=== PATIENT | female | born 1995 | race African-American/Black ===

== ENCOUNTER 2018-09-15 12:17 | Observation (INO) ==
[2018-09-15] MEDS ORDERED: NS 1,000 ML IV ONE ×4 (12:34→17:47)
[2018-09-15] MEDS ORDERED: BENTYL IM ONE (12:34)
[2018-09-15] MEDS ORDERED: REGLAN IV ONE (12:34)
--- NOTE | 2018-09-15 12:49 | PROVIDER DOCUMENTATION ---
This chart was entered by Kianna Contreras Scribe, acting as scribe for Dina Montano CRNP. HPI-Abdominal Pain/GI Problem <AdrianMarcellus Cassidy. - Last Filed: 09/15/18 15:43> - General Source: patient - History of Present Illness-ABD Nature of Presenting Problems: 23yof presents to ED cc vomiting since 8am and severe abdominal pain. Unsure of how many vomiting episodes she has had. Pt reports she has hx of gastroparesis and she has these symptoms every time she is on her menstrual cycle, which she reports she is currently on. Pt has hx of DM. Pt is very anxious upon examination. Denies fever/chills, diarrhea, CP, SOB, or symptoms. Pt reports hx of HTN for which she is prescribed medication (unsure of name), but reports she does not take the medication. Abdominal Pain Onset Location: reports: suprapubic Pain Radiation: reports: no radiation Quality of Pain: reports: tightness Severity in ED: reports: moderate Onset/Duration: reports: this morning Timing: reports: still present, intermittent Activities at Onset: reports: none Exposure to sick contacts?: No Modifying Factors: worse with: palpation Associated Symptoms: reports: nausea, vomiting. denies: diarrhea, dizziness, fatigue, fever/chills, genitourinary problems, sinus congestion/drainage, shortness of breath, weakness, trouble walking Last BM: unsure Dark Stools Present?: reports: none noticed Rectal Bleeding: reports: none Rectal Pain: reports: none Emesis Description: reports: clear Bruising or Bleeding Gums?: No Similar Symptoms Previously?: Yes Recently seen or treated by another doctor?: No <Dina Montano - Last Filed: 09/15/18 15:51> - General Chief Complaint: Nausea/Vomiting Stated Complaint: ABD PAIN, VOMITTING Time Seen by Provider: 09/15/18 12:29 Allergies/Adverse Reactions: Patient Allergies Allergy/AdvReac Type Severity Reaction Status Date / Time No Known Allergies Allergy Verified 06/16/18 17:15 Home Medications: Home Medication List Medication Instructions Recorded Confirmed Last Taken Type Insulin Glargine,Hum.rec.anlog 20 units SQ QHS 06/16/18 08/22/18 Unknown History [Lantus Solostar] Promethazine [Phenergan] 25 mg [place] Q6H PRN PRN #12 supp 08/22/18 Unknown Rx Review of Systems - Adult - REVIEW OF SYSTEMS - ADULT Constitutional: reports: see HPI. denies: chills, fever, fatique Eyes: reports: no symptoms reported Ears, Nose, Mouth & Throat: reports: no symptoms reported Cardiovascular: denies: chest pain, palpitations Respiratory: denies: cough, shortness of breath Gastrointestinal: reports: see HPI, abdominal pain (lower), nausea, vomiting. denies: diarrhea Genitourinary: denies: dysuria, urgency Musculoskeletal: reports: no symptoms reported Integumentary: reports: no symptoms reported Neurological: denies: dizziness/vertigo, headache/migraines Psychiatric: reports: no symptoms reported Endocrine: reports: no symptoms reported All Other Systems: Reviewed and Negative <Dina Montano - Last Filed: 09/15/18 15:51> Past History - Adult - PAST MEDICAL HISTORY-ADULT Review of Records: reports: Old Records Reviewed, Nursing Assessment Review, Medications Reviewed, Social history reviewed & non-contributory. Major Childhood Illnesses: reports: denies history Cardiovascular: reports: HTN Respiratory: reports: denies history Gastrointestinal: reports: GERD, other (gastric issues, gastroparesis, lactose and tolerant) Obstetrical/Gynecological: reports: denies history Genitourinary: reports: denies history Musculoskeletal: reports: denies history Neurological: reports: denies history Psychiatric: reports: depression Endocrine/Immune: reports: Diabetes Other Conditions: reports: denies history - PRIOR SURGERIES/PROCEDURES Surgical/Procedure History: reports: reviewed, not pertinent, other ([place] teeth) - PRIOR HOSPITALIZATIONS Prior Hospitalizations: reports: none - IMMUNIZATION STATUS Childhood Immunizations: See Nurse Assessment Flu Vaccine: See Nurse Assessment - FAMILY HISTORY Family History: reviewed, not pertinent - SOCIAL HISTORY Smoking: denies <Dina Montano - Last Filed: 09/15/18 15:51> Physical Exam-General - PHYSICAL EXAM-ADULT Initial Vital Signs Reviewed: Yes - CONSTITUTIONAL General Appearance: alert, mild distress, anxious. negative: combative - EYES Eyes: PERRL/EOMI, pink conjunctivae. negative: photophobia - HEAD, EARS, NOSE, MOUTH & THROAT HENMT: normocephalic/atraumatic, moist mucous membranes. negative: angioedema - NECK Neck: non-tender, full range of motion, supple, normal inspection. negative: B rudzinski's sign, carotid bruit, C-spine tenderness - RESPIRATORY Respiratory: chest non-tender, lungs clear, normal breath sounds, no pleuratic chest pain, no respiratory distress, no accessory muscle use. negative: crackles, rales, rhonchi - CARDIOVASCULAR Cardiovascular: normal peripheral pulses, regular rate, rhythm. negative: bradycardia, tachycardia - GASTROINTESTINAL (ABDOMEN) Abdominal Exam: normal bowel sounds, soft, no organomegaly, no pulsatile mass, tenderness (TTP mild lower abdomen). negative: non tender, rigid, rebound, McBurney's point tenderness, Wakefield's sign - LYMPHATIC Lymphatic: no adenopathy. negative: striations - MUSCULOSKELETAL Back Exam: normal inspection, no CVA tenderness, no vertebral tenderness. negative: swelling Extremity: normal range of motion, non-tender, normal gait, normal inspection. negative: deformity - SKIN Integumentary: normal color, normal turgor, warm/dry. negative: diaphoresis, signs of IVDA, jaundice - NEUROLOGIC Neurologic: grossly normal, no motor/sensory deficits. negative: facial droop, focal weakness - PSYCHIATRIC Psych/Mental Status: oriented x 3, anxious, tearful. negative: paranoid <Dina Montano - Last Filed: 09/15/18 15:51> Progress - PLAN OF CARE/RESULTS Progress/Plan/Lab Results: Vital Signs - 8 hr 09/15/18 12:20 09/15/18 13:02 09/15/18 13:18 Temperature 98.4 F Pulse Rate 69 51 L Pulse Rate [Sitting] 50 L Pulse Rate [Standing] 56 L Pulse Rate [Supine] 51 L Respiratory Rate 28 H 16 Blood Pressure 188/103 180/97 Blood Pressure [Sitting] 164/91 Blood Pressure [Standing] 174/100 Blood Pressure [Supine] 167/91 O2 Sat by Pulse Oximetry 100 100 09/15/18 13:51 Temperature Pulse Rate 45 L Pulse Rate [Sitting] Pulse Rate [Standing] Pulse Rate [Supine] Respiratory Rate 16 Blood Pressure 160/90 Blood Pressure [Sitting] Blood Pressure [Standing] Blood Pressure [Supine] O2 Sat by Pulse Oximetry 100 Bedside Urine ED: Urine Bedside Start: 09/15/18 12:29 Freq: ORDERED Status: Active Protocol: Activity Type Activity Date Activity User E-Sign Co-Sign Detail Recorded Client Recorded Date Recorded By Document 09/15/18 13:02 [id number] 09/15/18 13:02 [id number] 09/15/18 13:02 Point of Care [Bedside Point of Care] -Lot # [id number] - Results Negative -Control Line Visible? Yes Laboratory Results - last 24 hr 09/15/18 09/15/18 09/15/18 12:40 12:40 12:46 WBC 8.66 RBC 4.44 Hgb 12.3 Hct 35.6 L MCV 80.2 L MCH 27.7 MCHC 34.6 RDW Std Deviation 15.1 H Plt Count 381 MPV 10.3 Immature Gran % (Auto) 0.3 Neut % (Auto) 67.1 Lymph % (Auto) 28.4 [place] % (Auto) 3.7 Eos % (Auto) 0.3 Baso % (Auto) 0.2 Immature Gran # (Auto) 0.03 Neut # (Auto) 5.80 Lymph # (Auto) 2.46 Ramsey # (Auto) 0.32 Eos # (Auto) 0.03 Baso # (Auto) 0.02 Specimen Type VBG pH VBG pCO2 VBG pO2 VBG HCO3 VBG O2 Saturation VBG Base Excess Sodium 135 L Potassium 3.6 Chloride 96 L Carbon Dioxide 20 L Anion Gap 19 BUN 8 Creatinine 0.6 Estimated GFR/1.73 m2 > 60 BUN/Creatinine Ratio 13 Glucose 273 H POC Glucose Calculated Osmolality 278 Calcium 9.6 Total Bilirubin 0.40 AST 23 ALT 24 Alkaline Phosphatase 130 H Total Protein 8.6 H Albumin 4.4 Globulin 4.0 Albumin/Globulin Ratio 1.0 Lipase 27 Urine Source CLEAN CATCH Urine Color YELLOW Urine Clarity CLEAR Urine pH 8.0 Ur Specific [place] 1.010 Urine Protein TRACE A Urine Ketones 3+(Large) A Urine Blood 3+ A Urine Nitrite NEGATIVE Urine Bilirubin NEGATIVE Urine Urobilinogen NORMAL Urine Microscopic RBC <10 Urine WBC NEGATIVE Urine Microscopic WBC <10 Ur Epithelial Cells >10 A Urine Crystals CA OXALATE PRESENT Urine Bacteria 1+ Urine Casts NONE SEEN Urine Yeast PRESENT Urine Glucose 2+(250 mg/dL) A Urine Opiates Screen Ur Oxycodone Screen Urine Methadone Screen U Propoxyphene Qual Ur Barbituates Screen Ur Tricyclics Screen Ur Phencyclidine Scrn Ur Amphetamines Screen U Methamphetamines Scrn U Benzodiazepines Scrn Urine Cocaine Screen U Cannabinoids Screen Acetone Level 09/15/18 09/15/18 09/15/18 12:59 13:07 13:40 WBC RBC Hgb Hct MCV MCH MCHC RDW Std Deviation Plt Count MPV Immature Gran % (Auto) Neut % (Auto) Lymph % (Auto) [place] % (Auto) Eos % (Auto) Baso % (Auto) Immature Gran # (Auto) Neut # (Auto) Lymph # (Auto) Ramsey # (Auto) Eos # (Auto) Baso # (Auto) Specimen Type VENOUS VBG pH 7.22 L VBG pCO2 47 VBG pO2 48 VBG HCO3 17.9 L VBG O2 Saturation 80.9 VBG Base Excess -8.4 L Sodium Potassium Chloride Carbon Dioxide Anion Gap BUN Creatinine Estimated GFR/1.73 m2 BUN/Creatinine Ratio Glucose POC Glucose 288 H Calculated Osmolality Calcium Total Bilirubin AST ALT Alkaline Phosphatase Total Protein Albumin Globulin Albumin/Globulin Ratio Lipase Urine Source Urine Color Urine Clarity Urine pH Ur Specific [place] Urine Protein Urine Ketones Urine Blood Urine Nitrite Urine Bilirubin Urine Urobilinogen Urine Microscopic RBC Urine WBC Urine Microscopic WBC Ur Epithelial Cells Urine Crystals Urine Bacteria Urine Casts Urine Yeast Urine Glucose Urine Opiates Screen NONE DETECTED Ur Oxycodone Screen NONE DETECTED Urine Methadone Screen NONE DETECTED U Propoxyphene Qual NONE DETECTED Ur Barbituates Screen NONE DETECTED Ur Tricyclics Screen NONE DETECTED Ur Phencyclidine Scrn NONE DETECTED Ur Amphetamines Screen NONE DETECTED U Methamphetamines Scrn NONE DETECTED U Benzodiazepines Scrn NONE DETECTED Urine Cocaine Screen NONE DETECTED U Cannabinoids Screen PRESUMPTIVE POSITIVE A Acetone Level 09/15/18 09/15/18 13:47 14:06 WBC RBC Hgb Hct MCV MCH MCHC RDW Std Deviation Plt Count MPV Immature Gran % (Auto) Neut % (Auto) Lymph % (Auto) [place] % (Auto) Eos % (Auto) Baso % (Auto) Immature Gran # (Auto) Neut # (Auto) Lymph # (Auto) [place] # (Auto) Eos # (Auto) Baso # (Auto) Specimen Type VBG pH VBG pCO2 VBG pO2 VBG HCO3 VBG O2 Saturation VBG Base Excess Sodium Potassium Chloride Carbon Dioxide Anion Gap BUN Creatinine Estimated GFR/1.73 m2 BUN/Creatinine Ratio Glucose POC Glucose 261 H Calculated Osmolality Calcium Total Bilirubin AST ALT Alkaline Phosphatase Total Protein Albumin Globulin Albumin/Globulin Ratio Lipase Urine Source Urine Color Urine Clarity Urine pH Ur Specific [place] Urine Protein Urine Ketones Urine Blood Urine Nitrite Urine Bilirubin Urine Urobilinogen Urine Microscopic RBC Urine WBC Urine Microscopic WBC Ur Epithelial Cells Urine Crystals Urine Bacteria Urine Casts Urine Yeast Urine Glucose Urine Opiates Screen Ur Oxycodone Screen Urine Methadone Screen U Propoxyphene Qual Ur Barbituates Screen Ur Tricyclics Screen Ur Phencyclidine Scrn Ur Amphetamines Screen U Methamphetamines Scrn U Benzodiazepines Scrn Urine Cocaine Screen U Cannabinoids Screen Acetone Level NEGATIVE Orders Category Date Time Status ED: Urine Bedside ORDERED Care 09/15/18 12:29 Active FSBS [Finger Stick Blood Sugar (ED)] DIRECTED Care 09/15/18 12:34 Active Orthostatic Vital Signs NOW Care 09/15/18 12:29 Active Saline Loc NOW Care 09/15/18 12:34 Active ACETONE SERUM [CHEM] Stat Lab 09/15/18 13:47 Completed CBC WITH ELECTRONIC DIFF [HEME] Stat Lab 09/15/18 12:40 Completed COMPREHENSIVE METABOLIC PANEL [CHEM] Stat Lab 09/15/18 12:40 Completed LIPASE [CHEM] Stat Lab 09/15/18 12:[address] W/POSS RFLX CULT [URINALYSIS] Stat Lab 09/15/18 12:46 Completed URINE DRUG SCREEN PL Stat Lab 09/15/18 13:07 Completed [address]OUS BLOOD GAS [address] [RESP] Routine Lab 09/15/18 13:40 Completed 0.9% Sodium Chloride Inj [Ns] 1,000 ml Med 09/15/18 12:34 Discontinued IV 999 mls/hr 0.9% Sodium Chloride Inj [Ns] 1,000 ml Med 09/15/18 15:12 Active IV 999 mls/hr Dicyclomine [Bentyl] Med 09/15/18 12:34 Discontinued 20 mg IM NOW ONE Famotidine [Pepcid] Med 09/15/18 13:58 Discontinued 20 mg IV NOW ONE Hydralazine [Apresoline] Med 09/15/18 15:11 Discontinued 10 mg IV NOW ONE Ketorolac [Toradol] Med 09/15/18 13:58 Discontinued 15 mg IV NOW ONE Metoclopramide [Reglan] Med 09/15/18 12:34 Discontinued 10 mg IV NOW ONE Ondansetron [Zofran] Med 09/15/18 13:58 Discontinued 4 mg IV NOW ONE Pantoprazole [Protonix] Med 09/15/18 13:58 Discontinued 40 mg IV NOW ONE Sodium Chloride 0.9% Med 09/15/18 13:58 Discontinued 10 ml INJ NOW ONE Sodium Chloride 0.9% Med 09/15/18 13:58 Discontinued 5 - 10 ml INJ NOW ONE EKG [EKG] Stat Ther 09/15/18 13:11 Draft Result Diagrams: 09/15/18 12:40 09/15/18 12:40 - REASSESSMENT Reassessment #2 Time Reassessed: 15:20 Status: worsening (ANOTHER BOUT OF BILIOUS VOMITING, BP NOW UP TO 209/176. NOT pH OF 7.22, BS JUST 273. DISCUSSED ADMISSION WITH DR FORTE) - CONSULTS/PCP/HOSPITALIST Notification #1 *Consult/PCP/Hospitalist*: Jada FORTE Consult Disposition: Admit, other (DR FORTE FAMILIAR WITH PT, ADMIT, TRIAL OF THORZINE IM) <Marcellus Campbell - Last Filed: 09/15/18 15:43> - PLAN OF CARE/RESULTS Progress/Plan/Lab Results: Vital Signs - 8 hr 09/15/18 12:20 Temperature 98.4 F Pulse Rate 69 Respiratory Rate 28 H Blood Pressure 188/103 O2 Sat by Pulse Oximetry 100 Orders Category Date Time Status ED: Urine Bedside ORDERED Care 09/15/18 12:29 Active FSBS [Finger Stick Blood Sugar (ED)] DIRECTED Care 09/15/18 12:34 Active Orthostatic Vital Signs NOW Care 09/15/18 12:29 Active Saline Loc NOW Care 09/15/18 12:34 Active CBC WITH ELECTRONIC DIFF [HEME] Stat Lab 09/15/18 12:29 Uncollected COMPREHENSIVE METABOLIC PANEL [CHEM] Stat Lab 09/15/18 12:29 Uncollected LIPASE [CHEM] Stat Lab 09/15/18 12:[address] W/POSS RFLX CULT [URINALYSIS] Stat Lab 09/15/18 12:29 Uncollected 0.9% Sodium Chloride Inj [Ns] 1,000 ml Med 09/15/18 12:34 Active IV 999 mls/hr Dicyclomine [Bentyl] Med 09/15/18 12:34 Discontinued 20 mg IM NOW ONE Metoclopramide [Reglan] Med 09/15/18 12:34 Discontinued 10 mg IV NOW ONE 1315: Patient's HR dropped down to 43bpm. EKG obtained. Patient BP elevated. Patient sleeping. Will continue to monitor. Result Diagrams: 09/15/18 12:40 09/15/18 12:40 - EKG 1 Time of EKG reading by physician:: 13:30 EKG Read and Signed by:: Marcellus Campbell EKG Interpretation (*Must complete 3 of following elements*): Abnormal Rate: 43 Rhythm: Marked sinus bradycardia [place]: normal QRS: LVH (minimal voltage criteria for LVH, may be normal variant) [place] Interval: normal ST Wave: non-specific ST changes - CONSULTS/PCP/HOSPITALIST Notification #1 *Consult/PCP/Hospitalist*: MD Sammy Time Discussed: 15:13 Reason/Comments: cyclic vomiting; DKA; abdominal pain Consult Disposition: Admit, other <Dina Montano - Last Filed: 09/15/18 15:51> Departure - Critical Care Note This patient required my direct & personal management of CC.: No <Marcellus Campbell - Last Filed: 09/15/18 15:43> - Departure Date of Disposition Decision: 09/15/18 Time of Disposition Decision: 15:15 Certified Medical Emergency: Emergent - Critical Care Note This patient required my direct & personal management of CC.: No <Dina Montano - Last Filed: 09/15/18 15:51> - Departure DIAGNOSIS: Nausea, Bradycardia Cyclic vomiting syndrome Qualifiers: Vomiting Intractability: non-intractable Nausea presence: with nausea Qualified Code(s): G43.A0 - Cyclical vomiting, not intractable Abdominal pain Qualifiers: Abdominal location: generalized Qualified Code(s): R10.84 - Generalized abdominal pain DKA, type 2 Qualifiers: Diabetes mellitus care home insulin use: unspecified care home insulin use status Diabetes mellitus complication detail: without coma Qualified Code(s): E11.10 - Type 2 diabetes mellitus with ketoacidosis without coma High blood pressure Qualifiers: Hypertension type: unspecified Qualified Code(s): I10 - Essential (primary) hypertension Disposition: ADMITTED INPATIENT 09 Condition: Stable Referrals and Follow-Ups: Derrick Forte MD [Primary Care Provider] - Attestation - Physician/ BABAK Attestation The physician spent face to face time with patient:: Yes Advanced Practice Provider documentation review:: Supervising physician onsite and consulted in the evaluation and care of this patient. The physician did have a face to face encounter with the patient. <Marcellus Campbell - Last Filed: 09/15/18 15:43> - Physician/ BABAK Attestation Patient care was provided by Advanced Practice Provider:: Yes Advanced Practice Provider:: Dina Montano Advanced Practice Provider documentation review:: The Mid-level provider documentation, treatment plan and medical decision making was reviewed by the physician who agrees with all treatment and medical decision making by the MLP. The physician spent face to face time with patient:: Yes Advanced Practice Provider documentation review:: Supervising physician onsite and consulted in the evaluation and care of this patient. The physician did have a face to face encounter with the patient. <Dina Montano - Last Filed: 09/15/18 15:51> This chart was documented by the indicated scribe, (Kianna Contreras Scribe) and accurately reflects the services I performed and decisions made by me, Dina Montano CRNP, as attested by the provider's signature.
[2018-09-15 13:05] LABS: BASO# 0.02 X1000 (0.0-0.2); BASO% 0.2 % (0.0-0.8); EOS# 0.03 X1000 (0.0-0.7); EOS% 0.3 % (0.0-10.0); HEMATOCRIT 35.6 % (37.0-47.0); HEMOGLOBIN 12.3 g/dL (12.0-16.0); IMM GRAN# 0.03 X1000 (0.0-0.04); IMM GRAN% 0.3 % (0.0-0.5); LYMPH# 2.46 X1000 (1.2-3.4); LYMPH% 28.4 % (20.5-51.1); MCH 27.7 PG (27-31); MCHC 34.6 g/dL (33-37); MCV 80.2 FL (81-99); MONO# 0.32 X1000 (0.11-0.59); MONO% 3.7 % (1.7-9.3); MPV 10.3 FL (7.4-10.4); NEUT% 67.1 % (42.2-75.2); PLT 381 X1000 (130-400); RBC 4.44 XMIL (4.2-5.4); RDW 15.1 % (11.5-14.5); WBC 8.66 X1000 (4.8-10.8)
[2018-09-15 13:13] LABS: BILIRUBIN URINE NEGATIVE (NEGATIVE); BLOOD URINE 3+ (NEGATIVE); KETONE URINE 3+(Large) mg/dL (NEGATIVE); LEUKOCYTES URINE NEGATIVE (NEGATIVE); NITRITE URINE NEGATIVE (NEGATIVE); PROTEIN URINE TRACE mg/dL (NEGATIVE); UROBILINOGEN URINE NORMAL
[2018-09-15 13:14] LABS: CLARITY CLEAR (CLEAR); COLOR YELLOW; URINE BACTERIA 1+ /HFP; URINE CAST NONE SEEN /LPF; URINE CRYSTAL CA OXALATE PRESENT /HPF; URINE EPITHELIAL CELLS >10 /HPF (<10); URINE RBC <10 /HPF (<10); URINE SOURCE CLEAN CATCH; URINE WBC <10 /HPF (<10); URINE YEAST PRESENT /HPF
[2018-09-15 13:16] LABS: AGAP 19; ALBUMIN 4.4 g/dL (3.5-5.0); ALKALINE PHOSPHATASE 130 U/L (32-104); BUN 8 mg/dL (8-22); CALCIUM 9.6 mg/dL (8.8-10.2); CHLORIDE 96 mmol/L (98-107); COSMO 278; CREATININE 0.6 mg/dL (0.5-0.9); ESTIMATED GFR > 60; GLUCOSE 273 mg/dL (70-104); GOT 23 U/L (10-30); GPT 24 U/L (10-36); LIPASE 27 U/L (13-60); POTASSIUM 3.6 mmol/L (3.5-5.1); SODIUM 135 mmol/L (136-145); TCO2 20 mmol/L (25-35); TOTAL PROTEIN 8.6 g/dL (6.3-8.3)
[2018-09-15 13:35] LABS: UR AMPHETAMINES QUAL NONE DETECTED (NONE DETECT); UR BARBITUATES QUAL NONE DETECTED (NONE DETECT); UR BENZODIAZEPIN QUAL NONE DETECTED (NONE DETECT); UR CANNABINOIDS QUAL PRESUMPTIVE POSITIVE (NONE DETECT); UR COCAINE QUAL NONE DETECTED (NONE DETECT); UR METHADONE QUAL NONE DETECTED (NONE DETECT); UR METHAMPHETAMINE QUAL NONE DETECTED (NONE DETECT); UR OPIATES QUAL NONE DETECTED (NONE DETECT); UR OXYCODONE QUAL NONE DETECTED (NONE DETECT); UR PCP QUAL NONE DETECTED (NONE DETECT); UR PROPOXYPHENE QUAL NONE DETECTED (NONE DETECT); UR TCA QUAL NONE DETECTED (NONE DETECT)
--- NOTE | 2018-09-15 13:46 | EKG Report ---
Test Performed on : 09/15/2018 1:15:38 PM Test Reason : bradycardia Blood Pressure : / mmHG Vent. Rate : 043 BPM Atrial Rate : 043 BPM P-R Int : 154 ms QRS Dur : 092 ms QT Int : 484 ms P-R-T Axes : 006 016 022 degrees QTc Int : 408 ms Marked sinus bradycardia. Minimal voltage criteria for LVH, may be normal variant Nonspecific ST and T wave abnormality Abnormal ECG No previous ECGs available Unconfirmed Result
[2018-09-15 13:55] LABS: BE -8.4 mmoll (-2.0-2.0); BLOOD TYPE VENOUS; HCO3-(ACT) 17.9 mmoll (22-27); PCO2(98.6) 47 mmHg (40-60); PO2(98.6) 48 mmHg (30-55); SAMPLE BLOOD; SAO2 80.9 % (40.0-85.0); pH(98.6) 7.22 (7.32-7.43)
[2018-09-15] MEDS ORDERED: PROTONIX IV ONE (13:58)
[2018-09-15] MEDS ORDERED: TORADOL IV ONE (13:58)
[2018-09-15] MEDS ORDERED: SODIUM CHLORIDE 0.9% INJ ONE ×2 (13:58)
[2018-09-15] MEDS ORDERED: ZOFRAN IV ONE (13:58)
[2018-09-15] MEDS ORDERED: PEPCID IV ONE (13:58)
[2018-09-15] MEDS ORDERED: APRESOLINE IV ONE (15:11)
[2018-09-15] MEDS ORDERED: ATIVAN IV ONE (15:23)
[2018-09-15] MEDS ORDERED: THORAZINE IM ONE (15:42)
[2018-09-15] MEDS ORDERED: HUMULIN R 100 UNIT in NS 99 ML IV SCH (17:00)
[2018-09-15] MEDS ORDERED: ZOFRAN IV PRN (17:47)
[2018-09-15 18:08] LABS: BLOOD TYPE ARTERIAL; SAMPLE BLOOD
[2018-09-15 18:09] LABS: BE -3.5 mmoll (-3.0-3.0); HCO3-(ACT) 22.2 mmoll (20.0-26.0); METHB 1.2 % (0.0-1.5); O2(CT) 14.8 mL/dL (15.0-23.0); O2HB 95.9 % (95.0-99.0); PCO2(98.6) 28 mmHg (35-45); PO2(98.6) 91 mmHg (60-100); SAO2 99.1 % (95.0-100.0); THB 10.9 g/dL (11.5-17.4); pH(98.6) 7.45 (7.35-7.45)
[2018-09-15 18:11] LABS: ALLEN TEST YES; MODALITY ROOM AIR
[2018-09-15] MEDS ORDERED: NS 1,000 ML ONE (22:21)
[2018-09-16] MEDS: NS 1,000 ML IV SCH ×4 (04:25→12:59)
[2018-09-16] MEDS ORDERED: TYLENOL PO PRN (08:26)
[2018-09-16] MEDS ORDERED: ATIVAN IV ONE (08:38)
[2018-09-16 09:10] LABS: BASO# 0.02 X1000 (0.0-0.2); BASO% 0.2 % (0.0-0.8); EOS# 0.01 X1000 (0.0-0.7); EOS% 0.1 % (0.0-10.0); HEMATOCRIT 32.8 % (37.0-47.0); HEMOGLOBIN 10.9 g/dL (12.0-16.0); IMM GRAN# 0.03 X1000 (0.0-0.04); IMM GRAN% 0.3 % (0.0-0.5); LYMPH# 4.01 X1000 (1.2-3.4); LYMPH% 38.9 % (20.5-51.1); MCH 26.8 PG (27-31); MCHC 33.2 g/dL (33-37); MCV 80.8 FL (81-99); MONO% 3.9 % (1.7-9.3); NEUT# 5.83 X1000 (1.4-6.5); NEUT% 56.6 % (42.2-75.2); PLT 372 X1000 (130-400); RBC 4.06 XMIL (4.2-5.4); RDW 15.3 % (11.5-14.5)
[2018-09-16 09:25] LABS: AGAP 15; ALBUMIN 3.9 g/dL (3.5-5.0); ALKALINE PHOSPHATASE 109 U/L (32-104); BUN 6 mg/dL (8-22); CALCIUM 8.5 mg/dL (8.8-10.2); CHLORIDE 102 mmol/L (98-107); COSMO 276; CREATININE 0.5 mg/dL (0.5-0.9); ESTIMATED GFR > 60; GLUCOSE 188 mg/dL (70-104); GOT 21 U/L (10-30); GPT 20 U/L (10-36); POTASSIUM 3.2 mmol/L (3.5-5.1); SODIUM 137 mmol/L (136-145); TCO2 20 mmol/L (25-35); TOTAL PROTEIN 7.6 g/dL (6.3-8.3)
[2018-09-16 16:04] VITALS: BP 145/75
--- NOTE | 2018-10-09 08:17 | HISTORY AND PHYSICAL ---
This 23-year-old is a habitual user of the emergency room and presents to the ED complaining of vomiting since 8:00 a.m.associated with severe abdominal pain. She has had numerous spells of this over the years, blaming it on gastroparesis and other odd conditions. She has these symptoms every time she has a menstrual cycle which she is currently on. Patient has a history of diabetes, is very anxious and immature. Denies fevers, chills, diarrhea, chest pain, shortness of breath or genitourinary symptoms. She also has a history of hypertension and takes some prescribed medicine which she is not sure what it is, but she does not take her medicines with any regularity. She is complaining of pain in the suprapubic area described as a tightness, pressure, cramping, moderate in intensity beginning this morning, intermittent since then, gagging when eating in her room. Of course, she has no sick contacts. Symptoms are aggravated by palpation. Her belly is soft however. She denies diarrhea, hematemesis, melena. She cannot even remember when she had her last bowel movement. She is supposedly on insulin glargine 20 units and has some promethazine suppositories that she uses regularly. REVIEW OF SYSTEMS: She denies any chills, fever, fatigue and significant weight loss in spite of these gagging, vomiting episodes. EYES: No visual acuity changes. EARS, NOSE, MOUTH AND THROAT: No pharyngitis, sinusitis, otitis. CARDIOVASCULAR: She denies chest pain, palpitations, PND. GASTROINTESTINAL: Denies diarrhea, just nauseated and vomits clear liquid and spits up GENITOURINARY: No dysuria or urgency. She is not having any significant issues with urinating or any sort of disease. MUSCULOSKELETAL: She has no myalgias, arthralgias. SKIN: Clear. No lesions. NEUROLOGICAL: No focal neurological deficits. She has frequent headaches. Face is pockmarked from previous acne. PSYCHIATRIC: She is very emotional, cannot keep a job, always throwing up. ENDOCRINE: Has diabetes, no complications of the diabetes. PAST MEDICAL HISTORY: 1. Hypertension. 2. GERD. 3. Gastroparesis. 4. Lactose intolerant. 5. History of diabetes. She had some wisdom teeth removed. She denies smoking, not a drinker. PHYSICAL EXAMINATION: VITAL SIGNS: At the time of admission, temperature was 98.4 degrees, pulse was 69, respiratory rate 28, BP 188/103, 100% O2 sat. HEENT: Head was normocephalic. Face was full faced with acne pockmarks. Eyes PERRL. EOMs intact. SC clear. Head, ears, nose and throat: Moist mucous membranes. Normocephalic, atraumatic. NECK: Supple. LUNGS: Normal inspiration. Lungs are clear. Normal breath sounds. No pleuritic chest pain. No respiratory pain. No accessory muscle use. Negative for crackles, rales and rhonchi. CARDIOVASCULAR: She has a regular rhythm and rate. No murmurs, gallops, clicks or rubs. ABDOMEN: Obese, soft. No hepatosplenomegaly. Negative for rebound. Negative for masses. LYMPHATICS: Negative. MUSCULOSKELETAL: Negative. SKIN: Clear. NEUROLOGICAL: Without deficits. PSYCHIATRIC: Emotional, tearful, immature for age. Patient with gastroparesis supposedly causing repetitive episodes of vomiting. She is seen in the ER. Their attempts to control her situation were unsuccessful. They gave her several units of fluid, Bentyl, Pepcid, Toradol, Zofran, Protonix, all to no avail so she was admitted short term to see if we could turn her around upstairs. cc: Derrick Christianson MD MTDD
--- NOTE | 2018-10-23 10:01 | HISTORY AND PHYSICAL ---
HISTORY OF PRESENT ILLNESS: She presented to the ER complaining of vomiting since 8 a.m. with severe abdominal pain, repetitively vomiting, unsure of how many she has, alleges she has a history of gastroparesis. She has these symptoms every time she is on her menstrual cycle which she reports she is currently on. She has a history of Type 2 diabetes, very anxious, very histrionic. She denies fevers, chills, diarrhea, chest pain, shortness of breath or symptoms. She does have a history of hypertension, does not know her blood pressure medicine but claims she does not take it anyway. Her abdominal discomfort is suprapubic, nonradiating, described as a tightness that began this morning and has been intermittent since. In spite of these issues of repetitively being hospitalized for vomiting, she is 5 feet 3 inches and 83 kilograms. In the ER she was treated with Phenergan, evaluated by the ER physician and had the following laboratory data. She had an 8660 white count, hematocrit 35.6, platelet count 381,000. Blood venous gas showed pH 7.22 on the initial attempt. We, ultimately, did arterial gas, pH was 7.45, pCO2 28, pO2 91 reflecting her hyperventilation. Lactate was 1.5. Her chemistries on admission showed sodium of 135, potassium 3.6, chloride 96, carbon dioxide 20, BUN 8, creatinine 0.6, blood sugars have ranged in the 200s. GFR was greater than 60. BUN/creatinine ratio was 13. On LFTs AST was 23, ALT 24, total bilirubin 0.4, calcium 9.6, alkaline phosphate 130, total bilirubin 8.6, albumin 4.4, globulin 4, lactate 1.2. As usual on her toxicology screen she was negative for acetones. She was positive for marijuana, as is typically the case. Her urine was 3+ blood, 3+ ketones, no significant cellular elements otherwise. She is on her cycle. ALLERGIES: She has no known allergies. REVIEW OF SYSTEMS: She has no history of significant weight gain or weight loss, no fever, no chills. She has no headaches, no TIA symptoms, no seizure activity. HEENT: Negative for pharyngitis, otitis or sinusitis. Pulmonary: No wheezing, no significant shortness of breath. She is hyperventilating at times. No cough, no phlegm production. Cardiovascular: She has no significant chest pain, denies any palpitations, no significant edema, PND or orthopnea. GI: See PI. : No dysuria, hematuria or polyuria. Extremities: Negative. Psychiatric: She is anxious, unemployable, gets hired on jobs but cannot maintain the work schedule. Mother is taking care of her affairs as if she was a child. MEDICATIONS: She is on insulin Glargine, promethazine suppositories. PAST MEDICAL HISTORY: She has a history of hypertension, GERD, supposedly is lactose intolerant, supposedly has gastroparesis. I am not sure how these all became part of her history, and she is not either. She has diabetes. She has had some wisdom teeth extractions. SOCIAL HISTORY: She denies smoking other than weed. PHYSICAL EXAMINATION: VITAL SIGNS: Stable on presentation HEENT/NECK: Negative, pockmarks otherwise. Male pattern balding type hair. Oropharynx negative. Eyes anicteric. PERRL. EOMI. NECK: Supple. No thyromegaly. CHEST: Bilaterally clear breath sounds. CARDIOVASCULAR: Regular rhythm and rate. No murmurs, gallops, clicks or rubs. ABDOMEN: Soft. EXTREMITIES: Negative for clubbing, cyanosis or edema. NEUROLOGICAL: Intact. PSYCHIATRIC: She was hysterical, hyperventilating. ASSESSMENT AND PLAN: She is admitted for fluid and meds to retain her gagging and nausea, otherwise she is unchanged from previous exam. cc: Derrick Christianson MD
--- NOTE | 2018-10-23 20:34 | DISCHARGE SUMMARY ---
ADMISSION DATE: 09/15/2018 DISCHARGE DATE: 09/16/2018 HISTORY OF PRESENT ILLNESS: She came in with an alleged history of repetitive vomiting which she attributed to being on her cycle activating gastroparesis, and lactose intolerance and such. She has not had any significant weight loss. No fever, no chills. Belly was protuberant and nontender with active bowel sounds. She was admitted and hydrated and given medications for nausea, vomiting and anxiety. She was put in the hospital and given dicyclomine, Reglan, fluids, Protonix, Pepcid, Zofran, hydralazine for her blood pressure, Toradol, and Ativan (Ativan made her sleepy and by far did the most good, more than all the other multiple medicines put together). Her symptoms resolved over a 24-hour period, and she was subsequently discharged from the hospital with her routine Phenergan suppositories and some Ativan to be used to try to head off these spells. She was discharged home. HOME MEDICATIONS: Insulin glargine/Lantus 20 units subcutaneously at bedtime, enalapril 5 mg b.i.d. (she does not take this), Zofran tablets (which she takes but they do not work). DISCHARGE MEDICATIONS: Phenergan suppositories and Ativan. DISCHARGE DIAGNOSES: 1. Hyperemesis, perhaps due to her chronic use of marijuana versus gastroparesis. 2. Diabetes. 3. Hypertension. 4. Obesity. cc: Derrick Christianson MD
== END 2018-09-16 16:51 | disposition home or self-care (01) ==
LOC: P.ED 12:17 → P.ICU 12:17
PROVIDERS: ADMIT Internal Medicine; ATTEND Internal Medicine
CPT/HCPCS: 80053; 80104; 80301; 80305; 81001; 81025; 82009; 82805; 82948; 83605; 83690; 85025; 93005; 96361; 96372; 96374; 96375; 96376; 99285; A9270; C9113; G0378; G0431; G0434; G0477; J0360; J0500; J1885; J2060; J2405; J2765; J7030; S0028; S0164; XXXXX

== ENCOUNTER 2018-09-24 11:46 | Observation (INO) ==
[2018-09-24 12:43] LABS: BASO# 0.03 X1000 (0.0-0.2); BASO% 0.2 % (0.0-0.8); EOS# 0.15 X1000 (0.0-0.7); EOS% 1.2 % (0.0-10.0); HEMATOCRIT 36.6 % (37.0-47.0); HEMOGLOBIN 12.3 g/dL (12.0-16.0); IMM GRAN# 0.03 X1000 (0.0-0.04); IMM GRAN% 0.2 % (0.0-0.5); LYMPH# 3.18 X1000 (1.2-3.4); LYMPH% 25.6 % (20.5-51.1); MCH 27.5 PG (27-31); MCHC 33.6 g/dL (33-37); MCV 81.7 FL (81-99); MONO% 6.5 % (1.7-9.3); NEUT# 8.21 X1000 (1.4-6.5); NEUT% 66.3 % (42.2-75.2); PLT 362 X1000 (130-400); RBC 4.48 XMIL (4.2-5.4); RDW 15.1 % (11.5-14.5)
[2018-09-24 13:09] LABS: AGAP 16; ALBUMIN 4.6 g/dL (3.5-5.0); ALKALINE PHOSPHATASE 129 U/L (32-104); BUN 9 mg/dL (8-22); CALCIUM 9.4 mg/dL (8.8-10.2); CHLORIDE 100 mmol/L (98-107); COSMO 281; CREATININE 0.6 mg/dL (0.5-0.9); ESTIMATED GFR > 60; GLUCOSE 218 mg/dL (70-104); GOT 18 U/L (10-30); GPT 22 U/L (10-36); POTASSIUM 3.6 mmol/L (3.5-5.1); SODIUM 138 mmol/L (136-145); TCO2 22 mmol/L (25-35); TOTAL PROTEIN 8.4 g/dL (6.3-8.3)
--- NOTE | 2018-09-24 13:28 | Diag Imaging Result Doc PS360 ---
EXAM: CHEST-PORTABLE 09/24/2018 HISTORY: chest pain TECHNIQUE: AP portable at 1321 COMMENT: There is no evidence of acute cardiac or pulmonary disease. Compared to 10/17/2017 there has been no significant change in the appearance of the chest. IMPRESSION: No acute disease. Electronically signed by Frank Caba 09/24/2018 1:25 PM
[2018-09-24] MEDS ORDERED: NS 1,000 ML IV ONE (13:52)
[2018-09-24] MEDS ORDERED: REGLAN IV ONE (13:52)
[2018-09-24 15:52] LABS: SED RATE 11 mm/hr (0-20)
[2018-09-24] MEDS ORDERED: ZOFRAN IV ONE ×2 (16:28)
--- NOTE | 2018-09-24 16:41 | EKG Report ---
Test Performed on : 09/24/2018 12:09:43 PM Test Reason : CP Blood Pressure : / mmHG Vent. Rate : 074 BPM Atrial Rate : 074 BPM P-R Int : 148 ms QRS Dur : 076 ms QT Int : 392 ms P-R-T Axes : 034 041 045 degrees QTc Int : 435 ms Normal sinus rhythm. Normal ECG When compared with ECG of 15-SEP-2018 13:15, (Unconfirmed) Vent. rate has increased BY 31 BPM Unconfirmed Result
[2018-09-24] MEDS ORDERED: CATAPRES PO ONE (17:56)
[2018-09-24] MEDS ORDERED: LABETALOL IV ONE (18:02)
[2018-09-24] MEDS ORDERED: LABETALOL ONE (18:07)
[2018-09-24] MEDS ORDERED: PHENERGAN IM ONE (19:28)
[2018-09-24] MEDS ORDERED: LANTUS INSULIN SUBQ SCH (21:00)
[2018-09-24] MEDS ORDERED: PHENERGAN IV PRN (21:32)
[2018-09-24] MEDS ORDERED: SODIUM CHLORIDE 0.9% INJ PRN (21:32)
[2018-09-24] MEDS ORDERED: ATIVAN IV PRN (21:32)
[2018-09-24] MEDS: VASOTEC PO SCH (21:52)
--- NOTE | 2018-09-25 08:40 | EKG Report ---
Test Performed on : 09/24/2018 6:11:38 PM Test Reason : ER Blood Pressure : / mmHG Vent. Rate : 062 BPM Atrial Rate : 062 BPM P-R Int : 160 ms QRS Dur : 086 ms QT Int : 428 ms P-R-T Axes : 031 019 037 degrees QTc Int : 434 ms Normal sinus rhythm. Minimal voltage criteria for LVH, may be normal variant Borderline ECG When compared with ECG of 24-SEP-2018 12:09, (Unconfirmed) No significant change was found Unconfirmed Result
[2018-09-25] MEDS: VASOTEC PO SCH ×2 (11:44→20:28)
[2018-09-25] MEDS ORDERED: LANTUS INSULIN SUBQ SCH (21:00)
[2018-09-26 07:11] LABS: AGAP 13; ALKALINE PHOSPHATASE 104 U/L (32-104); BUN 13 mg/dL (8-22); CALCIUM 9.1 mg/dL (8.8-10.2); CHLORIDE 103 mmol/L (98-107); COSMO 279; CREATININE 0.6 mg/dL (0.5-0.9); ESTIMATED GFR > 60; GLUCOSE 115 mg/dL (70-104); GOT 16 U/L (10-30); GPT 17 U/L (10-36); POTASSIUM 3.5 mmol/L (3.5-5.1); SODIUM 139 mmol/L (136-145); TCO2 24 mmol/L (25-35); TOTAL PROTEIN 7.4 g/dL (6.3-8.3)
[2018-09-26] MEDS: VASOTEC PO SCH (08:39)
[2018-09-26 11:39] VITALS: BP 115/57
--- NOTE | 2018-09-26 12:09 | PROGRESS NOTE ---
DATE: 09/26/2018 SUBJECTIVE: The patient is doing well today. No longer vomiting. OBJECTIVE: Vital signs: She is afebrile. Temperature is 98.4, pulse 76, respiratory rate 18, blood pressure was 118/76, O2 saturation is 100%. DIAGNOSTIC DATA: Her blood work today is all normal. Her chemistries reveal a sodium of 139, potassium 3.5, chloride 103, CO2 is 24, BUN is 13, creatinine 0.6. Blood sugars are all normal. Liver functions are normal. ASSESSMENT AND PLAN: We are going to send the patient out on her Ativan to take as she needs along with her nausea medicine when she has her panic attacks and cyclical vomiting attacks. She will be discharged later this morning. cc: Derrick Christianson MD
--- NOTE | 2018-09-26 13:20 | ED EKG INTERP ---
This chart was entered by Maria Teresa eBst Scribe, acting as scribe for Emili Avery MD. EKG Interpretation - EKG Time of EKG reading by physician:: 18:11 EKG Read and Signed by:: Emili Avery EKG Interpretation (*Must complete 3 of following elements*): Abnormal Rate: 62 Rhythm: NSR [place]: normal QRS: LVH (minimal voltage criteria for lvh, may be normal variant) [place] Interval: normal ST Wave: normal Prior EKG Comparison: changes noted Attestation - Physician/ BABAK Attestation Patient care was provided by Advanced Practice Provider:: No The physician spent face to face time with patient:: Yes Advanced Practice Provider documentation review:: Supervising physician onsite and consulted in the evaluation and care of this patient. The physician did have a face to face encounter with the patient. This chart was documented by the indicated scribe, (Maria Teresa Best Scribe) and accurately reflects the services I performed and decisions made by Bennie gamez Yvonne C., MD, as attested by the provider's signature.
--- NOTE | 2018-09-26 13:56 | HISTORY AND PHYSICAL ---
HISTORY OF PRESENT ILLNESS: This is a 23-year-old female who presented to the hospital on 09/24/2018 after she had woken up feeling normal, began cooking breakfast, started getting nauseated and got launched into one of her nausea, vomiting, anxiety attacks. She was seen in the ER, and she was treated by the physician in the ER, given stuff for nausea, given fluids, but she kept on throwing up. Got admitted to Dr. Coronel initially and then switched over to my service. Her exam on admission did not show any significant pathology to suggest acute abdomen. It was her typical situation. So she was moved upstairs. ALLERGIES: None. MEDICATIONS: Amlodipine and Lantus 20 units at bedtime. She also has available Phenergan that she tries to use to stop these attacks, sometimes it does, but most of the time it does not. She has been worked up. She has seen stomach doctors. She has had scans. All have been pretty much unrevealing. PAST MEDICAL HISTORY: The only surgery she had was laser eye surgery and wisdom teeth. SOCIAL HISTORY: She is a smoker, not a drinker. Does not use street drugs except for marijuana, and we think marijuana may lead to a hyperemesis basis. REVIEW OF SYSTEMS: She has not been losing a significant amount of weight. Not running fever. No chills or night sweats. PACKER FUSER: No seizure disorder. No headaches. No stroke-like events. She has never had a problem with her thyroid. The only endocrine problem she has is diabetes. Cardiovascular: She does not have hypertension, dyslipidemia, heart murmur, heart enlargement or ischemic heart disease. She does have hypertension, though. Pulmonary: No significant asthma, wheeze, cough or tuberculosis. : No kidney stones or kidney failure. GI: Recurrent hyperemesis. PHYSICAL EXAMINATION: On admission: HEENT: Head was normocephalic. Eyes were PERRLA. EOMs intact. Sclerae clear. Fundi benign. Nares patent. Oropharynx negative. NECK: Supple with bounding carotids, without thyromegaly. CHEST: Clear with bilateral breath sounds. CARDIOVASCULAR: Normal. No murmurs, gallops, clicks or rubs. ABDOMEN: Soft. No hepatosplenomegaly. No CVA tenderness. Bowel sounds were present. EXTREMITIES: Negative for cyanosis, clubbing or edema. NEUROLOGICAL: Intact. ADMITTING DIAGNOSES: 1. Hyperemesis. 2. Chronic anxiety. 3. Diabetes. 4. Hypertension. cc: Derrick Christianson MD
--- NOTE | 2018-09-30 18:26 | PROVIDER DOCUMENTATION ---
This chart was entered by Katia Valencia Scribe, acting as scribe for Avery Ball MD. HPI-Chest Pain - General Source: patient - History of Present Illness-CP Location: reports: other (rt anterior chest wall pain) Chest Pain Radiation: reports: epigastric Quality of Pain: reports: pressure Severity in ED: severe Onset/Duration: this morning Timing: still present, constant, getting worse Context/Activities at Onset: reports: light activity (was sitting on couch) Modifying Factors: improves with: nothing. worse with: breathing, lying down, movement, palpation Associated Symptoms: reports: abdominal pain, nausea, shortness of breath, vomiting. denies: back pain, diaphoresis, dizziness, headache, syncope Nitro Today/Relief: no nitro taken today Aspirin Treatment Today: 325 mg x 1, provided by ED Prior Chest Pain/Cardiac Workup: reports: no prior chest pain Similar Symptoms Previously?: Yes (anxiety) Recently Seen Here or By Another Healthcare Provider: No <Avery Ball - Last Filed: 09/24/18 17:52> <Emili Avery - Last Filed: 09/24/18 18:05> <Derrick Christianson - Last Filed: 09/28/18 17:44> - General Chief Complaint: Chest Pain Stated Complaint: CHEST PAIN Time Seen by Provider: 09/24/18 11:59 Allergies/Adverse Reactions: Patient Allergies Allergy/AdvReac Type Severity Reaction Status Date / Time No Known Allergies Allergy Verified 06/16/18 17:15 Home Medications: Home Medication List Medication Instructions Recorded Confirmed Last Taken Type Insulin Glargine,Hum.rec.anlog 20 units SQ QHS 06/16/18 09/24/18 Unknown History [Lantus Solostar] ENALApril [Vasotec] 5 mg PO BID 09/15/18 09/24/18 Unknown History Promethazine [Phenergan] 25 mg .SEE ORDER Q6H PRN PRN #20 09/26/18 Unknown Rx supp Review of Systems - Adult - REVIEW OF SYSTEMS - ADULT ROS:: limited per condition Constitutional: denies: chills, fever Eyes: reports: no symptoms reported Ears, Nose, Mouth & Throat: reports: no symptoms reported Cardiovascular: reports: see HPI, chest pain, orthopnea. denies: edema, palpitations, syncope Respiratory: reports: see HPI, cough, dyspnea on exertion, shortness of breath. denies: wheezing Gastrointestinal: reports: see HPI, abdominal pain, nausea, vomiting. denies: diarrhea Genitourinary: reports: no symptoms reported Musculoskeletal: denies: back pain, neck pain Integumentary: reports: no symptoms reported Neurological: denies: dizziness/vertigo, headache/migraines Psychiatric: reports: no symptoms reported Endocrine: reports: no symptoms reported Hematologic/Lymphatic: reports: no symptoms reported Allergic/Immunologic: reports: no symptoms reported All Other Systems: Reviewed and Negative <Avery Ball - Last Filed: 09/24/18 17:52> Past History - Adult - PAST MEDICAL HISTORY-ADULT Review of Records: reports: Nursing Assessment Review, Medications Reviewed Major Childhood Illnesses: reports: denies history Cardiovascular: reports: HTN Respiratory: reports: denies history Gastrointestinal: reports: GERD, other (gastric issues, gastroparesis, lactose and tolerant) Obstetrical/Gynecological: reports: denies history Genitourinary: reports: denies history Musculoskeletal: reports: denies history Hand Dominance: Right Handed Neurological: reports: denies history Psychiatric: reports: anxiety, depression Endocrine/Immune: reports: Diabetes Diabetes Type: Type 2 Other Conditions: reports: denies history - PRIOR SURGERIES/PROCEDURES Surgical/Procedure History: reports: reviewed, not pertinent, other ([place] teeth) - PRIOR HOSPITALIZATIONS Prior Hospitalizations: reports: none - IMMUNIZATION STATUS Childhood Immunizations: See Nurse Assessment Flu Vaccine: See Nurse Assessment - FAMILY HISTORY Family History: reviewed, not pertinent - SOCIAL HISTORY Smoking: cigarettes, less than 1 pack/day Provider spent 3-5 mins advising pt. on dangers of tobacco.: Discussed manners to quit use, and f/u contacts for add'l counseling. Substance Use: alcohol, marijuana Alcohol Use Frequency: 2-3 times a month Number of drinks per typical drinking period:: 3-4 drinks Living Situation: family <Avery Ball - Last Filed: 09/24/18 17:52> Physical Exam-General - PHYSICAL EXAM-ADULT Initial Vital Signs Reviewed: Yes - CONSTITUTIONAL General Appearance: appears well, alert, moderate distress, obese, anxious (pt is dramatic and crying on exam) - EYES Eyes: PERRL/EOMI, pink conjunctivae - HEAD, EARS, NOSE, MOUTH & THROAT HENMT: moist mucous membranes, normal ENT inspection - NECK Neck: non-tender, full range of motion, supple - RESPIRATORY Respiratory: lungs clear, normal breath sounds, no respiratory distress, no accessory muscle use, increased rate (24) - CARDIOVASCULAR Cardiovascular: normal peripheral pulses, tachycardia - CHEST (BREASTS) Chest/Breast: tenderness (pain repruced with palpation and deep breathing on rt anterior chest wall) - GASTROINTESTINAL (ABDOMEN) Abdominal Exam: normal bowel sounds, soft, tenderness (epigastric) - LYMPHATIC Lymphatic: no adenopathy - MUSCULOSKELETAL Back Exam: normal inspection, no CVA tenderness, no vertebral tenderness Extremity: normal range of motion, non-tender, normal gait, normal inspection, no pedal edema, no calf tenderness, normal capillary refill, pelvis stable - SKIN Integumentary: normal color, normal turgor, warm/dry - NEUROLOGIC Neurologic: grossly normal, no motor/sensory deficits - PSYCHIATRIC Psych/Mental Status: normal thought content, normal thought process, oriented x 3, anxious <Avery Ball - Last Filed: 09/24/18 17:52> - HEART Score HEART Score: History: Slightly Suspicious HEART Score: ECG: Normal HEART Score: Age: < or = 45 Years HEART Score: Risk Factors for Atherosclerotic Disease: No Risk Factors Known HEART Score: Troponin: < or = Normal Limit Total HEART Score:: 0 <Avery Ball - Last Filed: 09/24/18 17:52> Progress - PLAN OF CARE/RESULTS Result Diagrams: 09/24/18 12:34 09/24/18 12:13 - REASSESSMENT Reassessment #1 Time Reassessed: 13:04 (pt is vomiting and still c/o chest wall pain) Status: unchanged Reassessment #2 Time Reassessed: 16:41 (pt still has nausea and pain that is 7/10. pt is anxious) Status: unchanged - EKG 1 Time of EKG reading by physician:: 12:16 EKG Read and Signed by:: Avery Ball EKG Interpretation (*Must complete 3 of following elements*): Normal Rate: 74 Rhythm: nsr [place]: normal QRS: normal [place] Interval: normal ST Wave: normal Prior EKG Comparison: no prior EKG - CONSULTS/PCP/HOSPITALIST Notification #1 *Consult/PCP/Hospitalist*: hospitalist tomer viera, Time Discussed: 17:52 (chest pain) Reason/Comments: phone consult Consult Disposition: Admit - CHANGE OF SHIFT REPORT (ED Provider) 1 Report Given and Care Transferred to:: Bennie Time of Transfer: 14:00 Items Pending: Labs <Avery Ball - Last Filed: 09/24/18 17:52> - PLAN OF CARE/RESULTS Result Diagrams: 09/24/18 12:34 09/24/18 12:13 <Emili Avery - Last Filed: 09/24/18 18:05> - PLAN OF CARE/RESULTS Result Diagrams: 09/24/18 12:34 09/26/18 06:10 <Derrick Christianson - Last Filed: 09/28/18 17:44> Departure <Avery Ball - Last Filed: 09/24/18 17:52> - Departure Date of Disposition Decision: 09/24/18 Time of Disposition Decision: 18:03 Certified Medical Emergency: Emergent - Critical Care Note This patient required my direct & personal management of CC.: No <Emili Avery - Last Filed: 09/24/18 18:05> - Departure Certified Medical Emergency: Emergent - Critical Care Note This patient required my direct & personal management of CC.: No <Derrick Christianson - Last Filed: 09/28/18 17:44> - Departure DIAGNOSIS: Chest wall pain, Tobacco use disorder, Vomiting, Hypertension Disposition: ADMITTED INPATIENT 09 Condition: Stable Attestation - Physician/ BABAK Attestation Patient care was provided by Advanced Practice Provider:: No The physician spent face to face time with patient:: Yes Advanced Practice Provider documentation review:: Supervising physician onsite and consulted in the evaluation and care of this patient. The physician did have a face to face encounter with the patient. <Avery Ball - Last Filed: 09/24/18 17:52> - Physician/ BABAK Attestation Patient care was provided by Advanced Practice Provider:: No The physician spent face to face time with patient:: Yes Advanced Practice Provider documentation review:: Supervising physician onsite and consulted in the evaluation and care of this patient. The physician did have a face to face encounter with the patient. <Derrick Christianson - Last Filed: 09/28/18 17:44> This chart was documented by the indicated scribe, (Katia Valencia Scribe) and accurately reflects the services I performed and decisions made by me, Avery Ball MD, as attested by the provider's signature.
== END 2018-09-26 15:05 | disposition home or self-care (01) | DRG 103 ==
LOC: P.ED 11:46 → INTOOBSV 11:47 → P.MEDSURG 11:47
PROVIDERS: ADMIT Internal Medicine; ATTEND Internal Medicine
CPT/HCPCS: 71010; 71045; 80053; 82948; 84484; 85025; 85379; 85651; 93005; 96361; 96372; 96374; 96375; 99285; A9270; J1815; J2060; J2405; J2550; J2765; J7030; XXXXX

== ENCOUNTER 2018-11-04 07:10 | Observation (INO) ==
--- NOTE | 2018-11-04 07:53 | PROVIDER DOCUMENTATION ---
HPI-General Adult - General Chief Complaint: Vomiting Stated Complaint: RETURN Time Seen by Provider: 11/04/18 07:28 Source: patient Allergies/Adverse Reactions: Patient Allergies Allergy/AdvReac Type Severity Reaction Status Date / Time No Known Allergies Allergy Verified 11/03/18 16:41 Home Medications: Home Medication List Medication Instructions Recorded Confirmed Last Taken Type ENALApril [Vasotec] 10 mg PO BID 11/04/18 11/04/18 Unknown History Insulin Glargine,Hum.rec.anlog 20 unit SQ HS 11/04/18 11/04/18 Unknown History [Lantus Solostar] Metoclopramide [Reglan] 10 mg PO BID 11/04/18 11/04/18 Unknown History - History of Present Illness -Gen Adult Nature of Presenting Problems: patient was a frequent er visitor, kept complaining iv fluid and admission, she made herself vomiting. stated she could not keep fluid down, but no active vomiting in the ER. Quality of Pain: reports: none Severity: reports: moderate Onset/Duration: reports: other (chronic vomiting) Context/Activities at Onset: reports: none Modifying Factors: improves with: eating Associated Symptoms: reports: anxiety. denies: cough, diarrhea, fever/chills, seizure, shortness of breath Similar Symptoms Previously?: Yes Recently seen or treated by another doctor?: Yes Review of Systems - Adult - REVIEW OF SYSTEMS - ADULT Constitutional: denies: fever, fatique Eyes: reports: no symptoms reported Ears, Nose, Mouth & Throat: reports: no symptoms reported Cardiovascular: reports: no symptoms reported Respiratory: reports: no symptoms reported Gastrointestinal: reports: nausea, vomiting Genitourinary: reports: no symptoms reported Musculoskeletal: reports: no symptoms reported Integumentary: reports: no symptoms reported Neurological: reports: no symptoms reported Psychiatric: reports: no symptoms reported Endocrine: reports: no symptoms reported Hematologic/Lymphatic: reports: no symptoms reported Past History - Adult - PAST MEDICAL HISTORY-ADULT Review of Records: reports: Nursing Assessment Review Major Childhood Illnesses: reports: denies history Cardiovascular: reports: HTN Respiratory: reports: denies history Gastrointestinal: reports: GERD, other (gastric issues, gastroparesis, lactose and tolerant) Obstetrical/Gynecological: reports: denies history Genitourinary: reports: denies history Musculoskeletal: reports: denies history Neurological: reports: denies history Psychiatric: reports: anxiety, depression Endocrine/Immune: reports: Diabetes Other Conditions: reports: denies history - PRIOR SURGERIES/PROCEDURES Surgical/Procedure History: reports: reviewed, not pertinent, other ([place] teeth) - PRIOR HOSPITALIZATIONS Prior Hospitalizations: reports: none - IMMUNIZATION STATUS Childhood Immunizations: See Nurse Assessment Flu Vaccine: See Nurse Assessment - FAMILY HISTORY Family History: reviewed, not pertinent Physical Exam-General - PHYSICAL EXAM-ADULT Initial Vital Signs Reviewed: Yes - CONSTITUTIONAL General Appearance: alert, no apparent distress - EYES Eyes: PERRL/EOMI - HEAD, EARS, NOSE, MOUTH & THROAT HENMT: normocephalic/atraumatic, moist mucous membranes - NECK Neck: non-tender, supple - RESPIRATORY Respiratory: chest non-tender, lungs clear, normal breath sounds, no pleuratic chest pain, no respiratory distress, no accessory muscle use - CARDIOVASCULAR Cardiovascular: normal peripheral pulses, no edema, no gallop - GASTROINTESTINAL (ABDOMEN) Abdominal Exam: normal bowel sounds, non tender, soft, no organomegaly, no pulsatile mass - LYMPHATIC Lymphatic: no adenopathy - MUSCULOSKELETAL Back Exam: normal inspection, no CVA tenderness, no vertebral tenderness Extremity: non-tender, normal gait - SKIN Integumentary: normal color, warm/dry - NEUROLOGIC Neurologic: grossly normal, no motor/sensory deficits - PSYCHIATRIC Psych/Mental Status: normal mood/affect Progress - PLAN OF CARE/RESULTS Progress/Plan/Lab Results: Vital Signs - 8 hr 11/04/18 07:21 Temperature 97.7 F Pulse Rate 76 Respiratory Rate 20 Blood Pressure 186/098 O2 Sat by Pulse Oximetry 98 Orders Category Date Time Status Saline Loc NOW Care 11/04/18 07:29 Active CBC WITH DIFF [HEME] Stat Lab 11/04/18 07:29 Uncollected COMPREHENSIVE METABOLIC PANEL [CHEM] Stat Lab 11/04/18 07:29 Uncollected Result Diagrams: 11/04/18 07:51 11/04/18 07:51 Departure - Departure Date of Disposition Decision: 11/04/18 Time of Disposition Decision: 10:35 DIAGNOSIS: Vomiting, Gastroparesis Disposition: ADMITTED INPATIENT 09 Certified Medical Emergency: Emergent Condition: Good - Critical Care Note This patient required my direct & personal management of CC.: No Attestation - Physician/ BABAK Attestation Patient care was provided by Advanced Practice Provider:: No The physician spent face to face time with patient:: Yes Advanced Practice Provider documentation review:: Supervising physician onsite and consulted in the evaluation and care of this patient. The physician did have a face to face encounter with the patient.
[2018-11-04 08:02] LABS: BASO# 0.02 X1000 (0.0-0.2); BASO% 0.2 % (0.0-0.8); HEMATOCRIT 36.7 % (37.0-47.0); HEMOGLOBIN 12.6 g/dL (12.0-16.0); IMM GRAN# 0.03 X1000 (0.0-0.04); IMM GRAN% 0.3 % (0.0-0.5); LYMPH# 2.22 X1000 (1.2-3.4); LYMPH% 21.9 % (20.5-51.1); MCH 27.1 PG (27-31); MCHC 34.3 g/dL (33-37); MCV 78.9 FL (81-99); MONO# 0.56 X1000 (0.11-0.59); MONO% 5.5 % (1.7-9.3); MPV 10.3 FL (7.4-10.4); NEUT# 7.32 X1000 (1.4-6.5); NEUT% 72.1 % (42.2-75.2); PLT 415 X1000 (130-400); RBC 4.65 XMIL (4.2-5.4); WBC 10.15 X1000 (4.8-10.8)
[2018-11-04 08:17] LABS: AGAP 17; ALBUMIN 4.7 g/dL (3.5-5.0); ALKALINE PHOSPHATASE 120 U/L (32-104); BUN 6 mg/dL (8-22); CALCIUM 9.5 mg/dL (8.8-10.2); CHLORIDE 96 mmol/L (98-107); COSMO 271; CREATININE 0.4 mg/dL (0.5-0.9); ESTIMATED GFR > 60; GLUCOSE 294 mg/dL (70-104); GOT 20 U/L (10-30); GPT 17 U/L (10-36); POTASSIUM 3.8 mmol/L (3.5-5.1); SODIUM 131 mmol/L (136-145); TCO2 18 mmol/L (25-35); TOTAL PROTEIN 8.7 g/dL (6.3-8.3)
[2018-11-04] MEDS ORDERED: NS 1,000 ML IV ONE ×2 (08:27→10:37)
[2018-11-04] MEDS ORDERED: TORADOL IV ONE (08:27)
[2018-11-04] MEDS ORDERED: REGLAN IV ONE (08:27)
[2018-11-04] MEDS ORDERED: ZOFRAN IV ONE (09:45)
[2018-11-04] MEDS ORDERED: THORAZINE IM PRN (10:54)
[2018-11-04 11:52] LABS: URINE SOURCE CLEAN CATCH
[2018-11-04 11:59] LABS: CLARITY VERY CLOUDY (CLEAR); COLOR YELLOW
[2018-11-04 12:00] LABS: BILIRUBIN URINE NEGATIVE (NEGATIVE); BLOOD URINE 1+ (NEGATIVE); KETONE URINE 2+(Moderate) mg/dL (NEGATIVE); LEUKOCYTES URINE 1+ (NEGATIVE); NITRITE URINE NEGATIVE (NEGATIVE); PROTEIN URINE 1+(30 mg/dL) mg/dL (NEGATIVE); UROBILINOGEN URINE NORMAL
[2018-11-04 12:06] LABS: URINE BACTERIA 1+ /HFP; URINE CAST NONE SEEN /LPF; URINE CRYSTAL NONE SEEN /HPF; URINE EPITHELIAL CELLS >10 /HPF (<10); URINE RBC <10 /HPF (<10); URINE TRICHOMONAS PRESENT; URINE WBC <10 /HPF (<10); URINE YEAST NONE SEEN /HPF
[2018-11-04 12:07] LABS: UR AMPHETAMINES QUAL NONE DETECTED (NONE DETECT); UR BARBITUATES QUAL NONE DETECTED (NONE DETECT); UR BENZODIAZEPIN QUAL PRESUMPTIVE POSITIVE (NONE DETECT); UR CANNABINOIDS QUAL PRESUMPTIVE POSITIVE (NONE DETECT); UR COCAINE QUAL NONE DETECTED (NONE DETECT); UR METHADONE QUAL NONE DETECTED (NONE DETECT); UR METHAMPHETAMINE QUAL NONE DETECTED (NONE DETECT); UR OPIATES QUAL NONE DETECTED (NONE DETECT); UR OXYCODONE QUAL NONE DETECTED (NONE DETECT); UR PCP QUAL NONE DETECTED (NONE DETECT); UR PROPOXYPHENE QUAL NONE DETECTED (NONE DETECT); UR TCA QUAL NONE DETECTED (NONE DETECT)
[2018-11-04] MEDS ORDERED: HALDOL IM ONE (12:11)
[2018-11-04] MEDS ORDERED: SODIUM CHLORIDE 0.9% INJ ONE (12:11)
[2018-11-04] MEDS ORDERED: PEPCID IV ONE (12:11)
[2018-11-04] MEDS ORDERED: ZOSTRIX TOP PRN (12:11)
[2018-11-04] MEDS ORDERED: APRESOLINE IV PRN (14:30)
[2018-11-04] MEDS ORDERED: SODIUM CHLORIDE 0.9% INJ SCH (14:30)
[2018-11-04] MEDS: ZOSTRIX TOP SCH ×2 (14:36→20:16)
--- NOTE | 2018-11-04 14:51 | HISTORY AND PHYSICAL ---
CHIEF COMPLAINT: Nausea and vomiting. HISTORY OF PRESENT ILLNESS: This is a 23-year-old female with a prior history of diabetes mellitus, hypertension, and prior intractable vomiting after using marijuana. She states that she used marijuana 5 days ago, that within 48 hours she began to have waxing and waning nausea, and then shortly after it began, it became persistent, and it has been persistent over the last 3 days. Her only relief is while sitting in a hot shower. She states she spent many hours there over these last 3 days. She states that she has been told in the past that she had cannabinoid hyperemesis syndrome, although she has continued to use. Of note, she underwent a gastric emptying study in October 2017 which had no gastric emptying over 45 minutes and which is consistent with severe gastroparesis. She has not taken her Reglan and medications regularly as prescribed, she states. PAST MEDICAL HISTORY: Diabetes mellitus, hypertension, gastroesophageal reflux disease, gastroparesis with no gastric emptying in 45 minutes. ALLERGIES: No known drug allergies. SOCIAL HISTORY: She denies alcohol use. She smokes marijuana regularly and she smokes cigarettes about half a pack a day. She does use cannabinoids and she smokes about a half a pack of cigarettes a day. REVIEW OF SYSTEMS: Discussed with the patient with pertinent positives stated in the HPI. She denies any dizziness, syncope, any chest pain, palpitations, any night sweats, any black or bloody vomitus or stools, any hematuria, dysuria, frequency, urgency. PHYSICAL EXAMINATION: GENERAL: This is a 23-year-old female who is walking around in the room in the ER in mild distress. VITAL SIGNS: Blood pressure is 154/97 with a heart rate of 69, respirations are 22, temperature is 99 degrees with room air saturations 93% to 100%. EYES: Pupils equal, round, and react to light. EOMs are intact. Sclerae are anicteric. HEENT: Head is normocephalic, atraumatic. Mucous membranes are moist. NECK: Supple with trachea midline. CARDIOVASCULAR: Regular rate and rhythm. S1 and S2 appreciated. EXTREMITIES: She has no lower extremity edema. Calves are nontender bilateral with peripheral pulses palpable x4 extremities. PULMONARY: Breath sounds are clear with no increased work of breathing noted. Chest rises and falls symmetric with respiration. Chest wall is nontender to palpation. GASTROINTESTINAL: Abdomen is soft, nontender, nondistended with bowel sounds in all 4 quadrants. GENITOURINARY: She has no CVA or suprapubic tenderness. NEUROLOGIC: She is alert and oriented x3. She is anxious. SKIN: Warm and dry. DIAGNOSTIC STUDIES: WBC is 10.1 with hemoglobin 12.6, hematocrit 36.7, and platelets of 415,000. Sodium 131, potassium 3.8, BUN 6, creatinine 0.4 with a glucose of 294. Urine drug screen is presumptive positive for benzodiazepines and cannabinoids. ASSESSMENT AND PLAN: 1. Cannabinoid hyperemesis syndrome. We will start capsaicin applied to her abdomen 4 times a day, give Haldol IM, and watch her response, along with Pepcid 20 mg IV now. We did discuss the importance of stopping using marijuana as this will continue with each use. She did state she has been told this in the past. 2. Gastroparesis with no gastric emptying in 45 minutes compatible with severe gastroparesis in October 2017 study. The patient has been prescribed Reglan in the past. She has opted not to take it because she stated she just did not think it would help. We will start Reglan IV at present q.6 h. and monitor. 3. Diabetes mellitus. She will be placed on patterned blood glucose with sliding scale insulin. 4. Hypertension. She is on no home medications. We will trend her vital signs and start medications. Blood pressures have been in the 180s over 90 to 110s. As she is vomiting, we will start hydralazine IV p.r.n. and once vomiting is under control, we can start oral medications. Further treatments are pending hospital course. This case was discussed with Dr. Coronel. Dictated by DAINA Astudillo for Francisco Coronel MD cc: DAINA Astudillo MD
[2018-11-04] MEDS: REGLAN IV SCH ×2 (15:15→20:17)
[2018-11-04] MEDS: HUMALOG (PARKWAY) SUBQ SCH ×2 (16:19→21:34)
--- NOTE | 2018-11-04 19:51 | HISTORY AND PHYSICAL ---
CHIEF COMPLAINT: Nausea, vomiting. HISTORY OF PRESENT ILLNESS: The patient unfortunately is a frequent visitor to the ER secondary to nausea, vomiting, abdominal pain. It appears that most of the time, her abdominal pain and nausea occur after she has decided to smoke marijuana. Again, that seems to be the case today. ALLERGIES: No known drug allergies. MEDICATIONS: 1. Lantus 20 units at bedtime. 2. Vasotec. 3. Reglan. PAST MEDICAL HISTORY: Significant for: 1. Reflux. 2. Gastroparesis. 3. Hypertension. 4. Diabetes. 5. Depression. 6. Chronic and continued marijuana use and abuse. 7. She has had her wisdom teeth out. FAMILY HISTORY: Noncontributory. REVIEW OF SYSTEMS: Denies any fevers, chills, cough, congestion. Denies any shortness of breath, chest pain, palpitations. Denies dysuria, frequency, urgency, hesitancy. Denies polyuria, polydipsia. No skin rashes, weight loss, or weight gain. Does have frequent and continued nausea. Denies any hematemesis, hematuria. FAMILY HISTORY: Noncontributory. PHYSICAL EXAMINATION: VITAL SIGNS: Reviewed. GENERAL: She is awake, alert, oriented, in no apparent respiratory distress. HEENT: Normocephalic, atraumatic. PERRL. NECK: Supple. No JVD. CARDIOVASCULAR: Regular rate. No murmurs. CHEST: Clear and unlabored. ABDOMEN: Soft, nondistended. Diffusely tender. Positive bowel sounds. EXTREMITIES: Moves all extremities. No edema. NEUROLOGIC: No focal changes. ASSESSMENT: 1. Hyperemesis, secondary to marijuana use and abuse. 2. Obesity. 3. Depression. 4. Diabetes. 5. Hypertension. PLAN: 1. We will admit patient to the hospital. 2. Intravenous fluids. 3. Will follow her blood sugars, which are elevated at 294. 4. Follow her low sodium as well as her metabolic acidosis. cc: Francisco Coronel MD
[2018-11-04] MEDS: PEPCID IV SCH (20:17)
[2018-11-05] MEDS: ZOSTRIX TOP SCH ×3 (02:30→09:04)
[2018-11-05] MEDS: REGLAN IV SCH ×2 (02:30→09:05)
[2018-11-05 06:03] LABS: HEMATOCRIT 36.4 % (37.0-47.0); HEMOGLOBIN 12.1 g/dL (12.0-16.0); MCH 26.8 PG (27-31); MCHC 33.2 g/dL (33-37); MCV 80.7 FL (81-99); MPV 10.1 FL (7.4-10.4); RBC 4.51 XMIL (4.2-5.4); RDW 15.6 % (11.5-14.5); WBC 7.09 X1000 (4.8-10.8)
[2018-11-05 06:23] LABS: AGAP 14; BUN 13 mg/dL (8-22); CALCIUM 9.1 mg/dL (8.8-10.2); CHLORIDE 100 mmol/L (98-107); COSMO 277; CREATININE 0.6 mg/dL (0.5-0.9); ESTIMATED GFR > 60; GLUCOSE 145 mg/dL (70-104); POTASSIUM 3.3 mmol/L (3.5-5.1); SODIUM 137 mmol/L (136-145); TCO2 23 mmol/L (25-35)
[2018-11-05] MEDS ORDERED: KLOR-CON PO ONE (06:27)
[2018-11-05] MEDS: HUMALOG (PARKWAY) SUBQ SCH ×2 (06:39→12:33)
[2018-11-05] MEDS: PEPCID IV SCH (09:05)
[2018-11-05 12:01] VITALS: BP 128/86
--- NOTE | 2018-11-05 13:51 | DISCHARGE SUMMARY ---
ADMISSION DATE: 11/04/2018 DISCHARGE DATE: 11/05/2018 DIAGNOSES: 1. Hyperemesis cannabinoid syndrome. 2. Morbid obesity. 3. Gastroparesis with no gastric emptying at 45 minutes. 4. Hypertension. 5. Diabetes mellitus. DIAGNOSTICS: Urine culture revealed mixed deborah. HOSPITAL COURSE: Ms. Turner presented to the emergency room with intractable nausea and vomiting that started about 3 days prior. She stated this started within 48 hours of using marijuana. She stated that the only relief she got was sitting in a hot shower and she stated she has spent most of her last 24 hours in the shower. She would only get out when the water got cold. She had been told in the past that she had cannabinoid hyperemesis syndrome. She does state that lately every time she uses cannabis that she has the symptoms. We started capsaicin applied to her abdomen, gave Haldol IM as well as Pepcid IV, and symptoms began to decrease in the first 2 or 3 hours. Started her on IV Reglan as she does have gastroparesis. Thankfully today she ate a full liquid diet for breakfast and lunch with no nausea, vomiting, and is ready for discharge. DISCHARGE VITAL SIGNS: Blood pressure is 123/70 with a heart rate of 63, respirations 20, temperature 98.3 degrees with room air saturations 99%. DISCHARGE PHYSICAL EXAMINATION: Cardiovascular: Regular rate and rhythm. S1, S2 appreciated. Calves are nontender bilateral with peripheral pulses palpable x4 extremities. Pulmonary: Breath sounds are clear. No increased work of breathing noted. Gastrointestinal: Abdomen is soft, nontender, nondistended with bowel sounds in all 4 quadrants. Neurologic: She is alert oriented x3. Skin: Is warm and dry. FOLLOWUP: Dr. Derrick Christianson, her primary care physician. She needs to call for an appointment. Follow up in 2 to 3 weeks, sooner if needed. She has been instructed to return to the emergency room for any syncope, dizziness, chest pain, palpitations, any black or bloody vomitus or stools, temperature greater than 101, any dysuria, hematuria, frequency, urgency or for any questions or concerns that she may have. She is being discharged home in stable condition with family members. This is a greater than 30 minute discharge. I did discuss with the patient at length the perils of continuing to use marijuana. We did discuss that she stated that the last 3 to 4 times she has smoked marijuana, she has had the symptoms. We did discuss that this would only continue. She did voice understanding at this time. Dictated by DAINA Astudillo for Francisco Coronel MD cc: DAINA Astudillo MD
--- NOTE | 2018-11-06 02:28 | DISCHARGE SUMMARY ---
ADMISSION DATE: 11/04/2018 DISCHARGE DATE: 11/05/2018 ADDENDUM: Patient seen and examined by myself. Full note dictated and discussed with nurse practitioner. On discharge, patient is awake, alert. Notes that her nausea is much improved. Denies any fevers or chills. Since she is able to tolerate a full diet, we will discharge her home. cc: Francisco Coronel MD
== END 2018-11-05 13:31 | disposition home or self-care (01) ==
LOC: P.MEDSURG 07:10 → P.ED 07:10 → SUATTDRO 11:50
PROVIDERS: ATTEND Family Medicine
CPT/HCPCS: 80048; 80053; 80104; 80301; 80305; 81001; 82948; 83735; 85025; 85027; 87088; A9270; G0431; G0434; G0477; J1630; J1885; J2405; J2765; J7030; S0028; XXXXX